=== PATIENT | female | born 1965 | race Caucasian/White ===

== ENCOUNTER 2022-01-24 07:15 | Day surgery (SDC) | payer BC ==
[2022-01-22 15:23] VITALS: BMI 28.8
[2022-01-24 07:30] VITALS: RESP 18
[2022-01-24] MEDS ORDERED: LIDOCAINE HCL/PF 2% SDV 5ML VIAL ONE (07:52)
[2022-01-24] MEDS ORDERED: PROPOFOL 80 ML ONE (07:52)
[2022-01-24 08:39] VITALS: TEMP 97
[2022-01-24 09:08] VITALS: BP 115/66; PULSE 68
== END 2022-01-24 09:48 | disposition home or self-care (01) ==
LOC: FASU-ENDO 07:15
PROVIDERS: ATTEND Student in an Organized Health Care Education/Training Program
PROC: 0DBL8ZX Excision of Transverse Colon, Via Natural or Artificial Opening Endoscopic, Diagnostic (ICD-10-PCS; principal; 2022-01-24 08:00)
DX: Z12.11 Encounter for screening for malignant neoplasm of colon (principal); D12.2 Benign neoplasm of ascending colon; K57.30 Diverticulosis of large intestine without perforation or abscess without bleeding
CPT/HCPCS: 88305-TC